=== PATIENT | female | born 1945 | race African-American/Black ===

== ENCOUNTER 2020-01-08 14:07 | Inpatient (IN) ==
[2020-01-08 15:38] LABS: Basophils % 0.1 % (0.0-0.8); Hematocrit 35.2 VOL% (35.7-47.0); Hemoglobin 11.2 GM/DL (12.0-16.0); Immature Granulocytes % 0.8 %; Immature Granulocytes Absolute 0.07 #; Lymphocytes # 0.3 10*3/uL (1.4-4.0); Lymphocytes % 3.9 % (21.3-54.2); Mean Corpuscular HGB Conc 31.8 GM/DL (32-36); Mean Corpuscular Volume 85.2 FL (87-102); Mean Platelet Volume 11.5 FL (9.6-12.0); Monocytes % 5.1 % (1.7-12.7); Neutrophils % 90.1 % (38.7-73.9); Platelet Count 187 T/CUMM (130-400); Red Blood Count 4.13 MC/CUMM (3.8-5.5); Red Cell Distribution Width 14.8 % (9.3-17.3); White Blood Count 8.6 T/CUMM (4-12)
[2020-01-08 16:32] LABS: Albumin 2.9 G/DL (3.4-5.0); Bilirubin,Total 1.7 MG/DL (0.2-1.0); Calcium 8.5 MG/DL (8.5-10.1); Ferritin 551.9 ng/ml (8-252); Osmolality,Calculated 262.2 MOS/KG (273-304)
[2020-01-08 17:29] LABS: Band Neutrophils 4 % (0-10); Lymphocytes 9 % (20-55); Platelet Estimate Adequate; Segmented Neutrophils 80 % (50-85); Total Cells Counted 100
[2020-01-08 17:30] LABS: Hypochromasia Slight; Microcytosis Slight
[2020-01-08] MEDS ORDERED: DEXTROSE 50% 25 GM/50 ML SYRINGE IV PRN (19:35)
[2020-01-08] MEDS ORDERED: GLUCAGON 1 MG VIAL IM PRN (19:35)
[2020-01-08] MEDS ORDERED: ONDANSETRON 4 MG/2 ML VIAL IV PRN (19:35)
[2020-01-08 20:51] LABS: Apearance,Urine Slightly Hazy (Clear); Bacteria,Urine Occasional /HPF (Few); Bilirubin,Urine Negative (Negative); Blood, Urine Negative (Negative); Glucose,Urine (UA) 50 mg/dL (Negative); Ketones,Urine Negative (Negative); Mucus,Urine Occasional /LPF (Occasional); Nitrite,Urine Negative (Negative); Protein,Urine 30 MG/DL; RBC,Urine 5 /HPF (0-4); Squamous Epithelial Cell,Urine Few /HPF (0-10); Urine Color Yellow (Yellow); Urine Specific Gravity 1.011 (1.001-1.035); Urine Urobilinogen < 2.0 EU/DL (0.2-1.0); WBC,Urine 10 /HPF (0-6)
[2020-01-08] MEDS: SODIUM CHLORIDE 0.45% 1,000 ML IV SCH (21:00)
[2020-01-08] MEDS: ENOXAPARIN 40 MG/0.4 ML SYRINGE SUBCUT SCH (21:01)
[2020-01-08] MEDS: PIPERACILLIN/TAZOBACTAM 3,375 MG in SODIUM CHLORIDE 0.9% 100 ML IV SCH (21:01)
[2020-01-08] MEDS: ACETAMINOPHEN 325 MG TABLET PO PRN (21:52)
[2020-01-09] MEDS: PIPERACILLIN/TAZOBACTAM 3,375 MG in SODIUM CHLORIDE 0.9% 100 ML IV SCH ×3 (04:19→21:10)
[2020-01-09 05:47] LABS: Basophils % 0.1 % (0.0-0.8); Eosinophils % 0.1 % (0.00-10.9); Hematocrit 34.2 VOL% (35.7-47.0); Immature Granulocytes % 0.7 %; Immature Granulocytes Absolute 0.05 #; Lymphocytes # 0.5 10*3/uL (1.4-4.0); Lymphocytes % 6.7 % (21.3-54.2); Mean Corpuscular HGB Conc 32.2 GM/DL (32-36); Mean Corpuscular Volume 84.2 FL (87-102); Mean Platelet Volume 11.3 FL (9.6-12.0); Monocytes % 5.8 % (1.7-12.7); Neutrophils % 86.6 % (38.7-73.9); Platelet Count 172 T/CUMM (130-400); Red Blood Count 4.06 MC/CUMM (3.8-5.5); Red Cell Distribution Width 14.8 % (9.3-17.3); White Blood Count 7.4 T/CUMM (4-12)
[2020-01-09 06:02] LABS: Calcium 8.7 MG/DL (8.5-10.1); Osmolality,Calculated 260.9 MOS/KG (273-304)
[2020-01-09] MEDS: PANTOPRAZOLE 40 MG TABLET PO SCH (08:17)
[2020-01-09] MEDS: ACETAMINOPHEN 325 MG TABLET PO PRN ×2 (16:24→21:10)
[2020-01-09] MEDS: SODIUM CHLORIDE 0.45% 1,000 ML IV SCH ×2 (16:59→22:50)
[2020-01-09] MEDS: ENOXAPARIN 40 MG/0.4 ML SYRINGE SUBCUT SCH (20:40)
[2020-01-10] MEDS: PIPERACILLIN/TAZOBACTAM 3,375 MG in SODIUM CHLORIDE 0.9% 100 ML IV SCH ×3 (04:15→20:55)
[2020-01-10] MEDS: ACETAMINOPHEN 325 MG TABLET PO PRN ×4 (05:06→21:03)
[2020-01-10 05:49] LABS: Basophils % 0.2 % (0.0-0.8); Eosinophils % 0.2 % (0.00-10.9); Hemoglobin 10.5 GM/DL (12.0-16.0); Immature Granulocytes % 1.4 %; Immature Granulocytes Absolute 0.08 #; Lymphocytes # 0.4 10*3/uL (1.4-4.0); Lymphocytes % 6.5 % (21.3-54.2); Mean Corpuscular HGB Conc 31.8 GM/DL (32-36); Mean Corpuscular Volume 84.6 FL (87-102); Mean Platelet Volume 11.3 FL (9.6-12.0); Monocytes % 5.4 % (1.7-12.7); Neutrophils % 86.3 % (38.7-73.9); Platelet Count 180 T/CUMM (130-400); White Blood Count 5.9 T/CUMM (4-12)
[2020-01-10 06:20] LABS: Calcium 8.3 MG/DL (8.5-10.1); Osmolality,Calculated 256.2 MOS/KG (273-304)
[2020-01-10] MEDS: PANTOPRAZOLE 40 MG TABLET PO SCH (08:57)
[2020-01-10] MEDS: SODIUM CHLORIDE 0.45% 1,000 ML IV SCH (11:58)
[2020-01-10] MEDS ORDERED: POTASSIUM CHLORIDE 20 MEQ TABLET PO ONE (12:00)
[2020-01-10] MEDS: VANCOMYCIN INJ 1,500 MG in SODIUM CHLORIDE 0.9% 500 ML IV SCH (16:23)
[2020-01-10] MEDS: ENOXAPARIN 40 MG/0.4 ML SYRINGE SUBCUT SCH (21:02)
[2020-01-11] MEDS: SODIUM CHLORIDE 0.45% 1,000 ML IV SCH (01:00)
[2020-01-11] MEDS: ACETAMINOPHEN 325 MG TABLET PO PRN (03:00)
[2020-01-11] MEDS: PIPERACILLIN/TAZOBACTAM 3,375 MG in SODIUM CHLORIDE 0.9% 100 ML IV SCH ×2 (04:22→13:10)
[2020-01-11] MEDS ORDERED: POTASSIUM CHLORIDE 20 MEQ TABLET PO SCH (05:30)
[2020-01-11 06:31] LABS: Basophils % 0.2 % (0.0-0.8); Hematocrit 31.8 VOL% (35.7-47.0); Hemoglobin 10.2 GM/DL (12.0-16.0); Immature Granulocytes % 1.2 %; Immature Granulocytes Absolute 0.05 #; Lymphocytes # 0.2 10*3/uL (1.4-4.0); Lymphocytes % 5.1 % (21.3-54.2); Mean Corpuscular HGB Conc 32.1 GM/DL (32-36); Mean Corpuscular Volume 83.9 FL (87-102); Mean Platelet Volume 10.7 FL (9.6-12.0); Monocytes % 5.4 % (1.7-12.7); Neutrophils % 88.1 % (38.7-73.9); Platelet Count 182 T/CUMM (130-400); Red Blood Count 3.79 MC/CUMM (3.8-5.5); Red Cell Distribution Width 14.9 % (9.3-17.3); White Blood Count 4.3 T/CUMM (4-12)
[2020-01-11 06:49] LABS: Calcium 8.1 MG/DL (8.5-10.1); Osmolality,Calculated 257.9 MOS/KG (273-304)
[2020-01-11 06:54] LABS: Band Neutrophils 4 % (0-10); Hypochromasia 1+; Lymphocytes 3 % (20-55); Segmented Neutrophils 90 % (50-85); Total Cells Counted 100
[2020-01-11 06:55] LABS: Burr Cells Slight; Microcytosis Slight; Platelet Estimate Adequate; Target Cells Slight
[2020-01-11] MEDS: PANTOPRAZOLE 40 MG TABLET PO SCH (08:43)
[2020-01-11] MEDS ORDERED: HYDROXYCHLOROQUINE 200 MG TABLET PO SCH (09:00)
[2020-01-11] MEDS ORDERED: ZINC SULFATE 220 MG CAPSULE PO SCH (09:00)
[2020-01-11] MEDS: VANCOMYCIN INJ 1,500 MG in SODIUM CHLORIDE 0.9% 500 ML IV SCH (15:01)
[2020-01-11 17:23] VITALS: BP 123/79
[2020-01-12] MEDS ORDERED: HYDROXYCHLOROQUINE 200 MG TABLET PO SCH (09:00)
== END 2020-01-11 16:45 | disposition hospice, home (50) | DRG 177 ==
LOC: N.ED 14:07 → N.EDINP 19:35 → INTOOBSV 19:35 → N.2E 20:39
PROVIDERS: ADMIT Internal Medicine; ATTEND Internal Medicine